=== PATIENT | male | born 1950 | race Caucasian/White ===

== ENCOUNTER 2018-12-07 11:09 | Day surgery (SDC) | payer OTHER ==
[~2018-12-07] VITALS: Ht 177.8 cm; Wt 113.9 kg
[~2018-12-07 11:09] MED LIST: AMLO10 PO; ASPI81CH PO; ASPI81EC; BASAGLAR K100 UNIT/1; BUME2 PO; CALCIUM + D3 E1 EACH PO; CARV3.125 PO; CARV6.25 PO; CEPH500 PO; CHLO25B PO; CIPR500 PO; Calcium + Vita1 EACH PO; FERR325 PO; FURO20 PO; Ferrous Sulfat325 M2 PO; GERI-HYDROLAC222 M1 EXT; Isosorbide Mono30 MG PO; LISI5 PO; Lantus100 UNIT/1 SC; METF500 PO; METO25 PO; Novolog Fl100 UNIT/1 SC; PANT40 PO; PRAV20 PO; PRED20 PO; PYRI100 PO; Prinivil10 MG PO; SPIR50 PO; STIOLTO RESPIMAT4 GM INH; Spironolactone50 MG PO; TEARS NATURALE BOTHEYES; VITAMIN B12-FO1 EACH PO; WARF2.5 PO; WARF5 PO; XARELTO20 MG PO; [UNRECOGNIZED DRUG - REMARK]; [UNRECOGNIZED DRUG - REMARK]
== END 2018-12-07 13:28 | disposition home or self-care (01) ==
LOC: ORSCSDS 11:09
PROVIDERS: Internal Medicine Gastroenterology
PROC: 0DBM8ZX Excision of Descending Colon, Via Natural or Artificial Opening Endoscopic, Diagnostic (ICD-10-PCS; principal; 2018-12-07 12:30)
PROC: 3E0H8GC Introduction of Other Therapeutic Substance into Lower GI, Via Natural or Artificial Opening Endoscopic (ICD-10-PCS; principal; 2018-12-07 12:30)
PROC: 0D5G8ZZ Destruction of Left Large Intestine, Via Natural or Artificial Opening Endoscopic (ICD-10-PCS; principal; 2018-12-07 12:30)
PROC: 0DBL8ZX Excision of Transverse Colon, Via Natural or Artificial Opening Endoscopic, Diagnostic (ICD-10-PCS; principal; 2018-12-07 12:30)
PROC: 0DBH8ZX Excision of Cecum, Via Natural or Artificial Opening Endoscopic, Diagnostic (ICD-10-PCS; principal; 2018-12-07 12:30)
PROC: 0DJ08ZZ Inspection of Upper Intestinal Tract, Via Natural or Artificial Opening Endoscopic (ICD-10-PCS; principal; 2018-12-07 12:30)
DX: K92.1 Melena (principal); D12.0 Benign neoplasm of cecum; D12.3 Benign neoplasm of transverse colon; D12.2 Benign neoplasm of ascending colon; Z86.010 Personal history of colon polyps; Q27.33 Arteriovenous malformation of digestive system vessel; K20.9 Esophagitis, unspecified; K44.9 Diaphragmatic hernia without obstruction or gangrene; K74.60 Unspecified cirrhosis of liver; K64.8 Other hemorrhoids; D50.9 Iron deficiency anemia, unspecified; Z87.891 Personal history of nicotine dependence; J44.9 Chronic obstructive pulmonary disease, unspecified; N18.3 Chronic kidney disease, stage 3 (moderate); Z99.81 Dependence on supplemental oxygen; E11.9 Type 2 diabetes mellitus without complications; I27.20 Pulmonary hypertension, unspecified; I48.0 Paroxysmal atrial fibrillation; Z95.0 Presence of cardiac pacemaker; G47.33 Obstructive sleep apnea (adult) (pediatric); E66.9 Obesity, unspecified; Z68.36 Body mass index [BMI] 36.0-36.9, adult
CPT/HCPCS: 82947; 88305; J2405; J3010; J7120